=== PATIENT | male | born 2000 | race Caucasian/White ===

== ENCOUNTER 2018-02-06 13:54 | Emergency (ER) | payer BC ==
--- NOTE | 2018-02-06 14:34 | EDPHY ---
H & P Stated Complaint: window fell on left hand last night Time Seen by Provider: 02/06/18 14:05 HPI/ROS: HPI: This is a 17-year-old male who presents with Chief Complaint: window fell on left hand last night Location: Left hand Quality: Injury Duration: Last night Signs and Symptoms: No bleeding, no radiation, no numbness, no weakness, no tingling, no incontinence, + decreased range of motion, + swelling, + pain, no fever Timing: Acute Severity: Moderate Context: Patient is right-hand dominant, presents with accidentally having a metal window in the dormitory slam on his left hand primarily his middle finger yesterday evening around 10:00 p.m. This occurred 14 hr prior to arrival. Patient reports that there is swelling, pain and decreased range of motion. He originally went to urgent care but they sent him to the emergency room for further evaluation. Reports tetanus is NOT current. Patient admits that he was under the influence of alcohol at the time of injury. Denies radiation, weakness, paresthesias. Modifying Factors: None Comment: ROS: A comprehensive 10 system review of systems is otherwise negative aside from elements mentioned in the history of present illness. MEDICAL/SURGICAL/SOCIAL HISTORY: Medical history: Generally healthy. Does not take any regular medications. Surgical history: Denies Social history: Student at [employer]. Nonsmoker. CONSTITUTIONAL: Polite and cooperative, teenage white male, awake and alert, no obvious distress HEENT: Atraumatic and normocephalic. NECK: supple EXTREMITIES: 2/2 pulses, strength 5/5, left middle finger DIP/PIP/MCP flexion/ extension intact with good light touch sensation. no deformities, no clubbing, no cyanosis or edema. NEUROLOGICAL: no focal neuro deficits. GCS 15. Light touch sensation intact. SKIN: Warm and dry, no erythema. no rash. Good capillary refill. Source: Patient Exam Limitations: No limitations - Personal History Current Tetanus/Diphtheria Vaccine: No Current Tetanus Diphtheria and Acellular Pertussis (TDAP): No - Medical/Surgical History Hx Asthma: No Hx Chronic Respiratory Disease: No Hx Diabetes: No Hx Cardiac Disease: No Hx Renal Disease: No Hx Cirrhosis: No Hx Alcoholism: No Hx HIV/AIDS: No Hx Splenectomy or Spleen Trauma: No Other PMH: none - Social History Smoking Status: Never smoked Constitutional: Initial Vital Signs Temperature (C) 36.7 C 02/06/18 13:56 Heart Rate 79 02/06/18 13:56 Respiratory Rate 18 02/06/18 13:56 Blood Pressure 137/87 H 02/06/18 13:56 O2 Sat (%) 96 02/06/18 13:56 O2 Delivery Mode Room Air Allergies/Adverse Reactions: Penicillins Allergy (Verified 02/06/18 13:55) Home Medications: Medication Instructions Recorded Acetaminophen/Codeine 300/30Mg 1 each PO Q6 PRN #10 tab 02/06/18 [Tylenol #3 (*)] Cephalexin [Keflex (*)] 500 mg PO TID #21 cap 02/06/18 Medical Decision Making - Diagnostics Imaging Results: Imaging Impressions Hand X-Ray 02/06/18 14:08 Impression: 1. There is no acute fracture. 2. Query small skin flap versus tiny radiopaque foreign body near the middle finger distal phalanx. Clinical correlation is suggested. Procedures: Procedure: Splint placement. A volar splint was applied by the Emergency Room is technician. After application of the splint I returned and re-examined the patient. The splint was adequately immobilizing the joint and distal to the splint the patient's circulation and sensation was intact. ED Course/Re-evaluation: Right hand x-ray ordered and shows soft tissue swelling but no fracture Local anesthesia provided and copiously irrigated No sutures required for superficial macerated skin. Will place on Keflex for antibiotic prophylaxis and give Tylenol No. 3 due to significant pain. Patient placed in volar wrist splint for immobilization Advised wound check in 3-5 days. No signs of neurovascular compromise/tenting of skin/compartment syndrome/ extremities and joints examined above and below area of concern and are neurovascularly intact. This patient was seen under the supervision of my secondary supervising physician. I evaluated care for this patient independently. Discussed this patient with Dr. Marley. Differential Diagnosis: Differential diagnosis includes but is not limited to crush injury, foreign body , laceration, nerve injury, tendon injury. Departure - Departure Disposition: Home, Routine, Self-Care Clinical Impression: Crushing injury of hand and fingers Qualifiers: Encounter type: initial encounter Laterality: left Qualified Code(s): S67.22XA - Crushing injury of left hand, initial encounter Condition: Good Instructions: Crush Injury (ED), Laceration Without Closure (ED) Additional Instructions: Keep the dressing/splint dry and in place for 3 days. After 3 days you may remove the splint and dressing, wash the site daily with mild soap and water; then pat dry. Keep covered with clean sterile dressing until fully healed. Take Tylenol 650 mg every 4 hours and/or Ibuprofen 600 mg every 8 hours with food as needed for pain. Take Tylenol No. 3 every 6 hr as needed for severe/breakthrough pain. Do not take Tylenol and Tylenol No. 3 at the same time. Apply ice for 30 minutes at a time; 2-3 times per day for the next 1-2 days. Take antibiotic as directed. Do not skip a dose. The x-rays obtained in the emergency department today demonstrate no evidence of an obvious fracture. Sometimes fractures are not obvious on the initial set of x-rays performed in the ED. For this reason, you should have repeat x-rays performed in 7-10 days if you are having any pain exclude the possibility of an occult fracture. Return to the ER immediately if you experience redness, red streaks, have fevers /chills, flu like symptoms, limited range of motion, or any other symptoms that concern you. Wound Care Follow-Up: Wound evaluation in [ 3-5 ] days. There is a charge for this evaluation in the Emergency Department. Referrals: [facility],. [Clinic] - 5-7 days, if not improved Prescriptions: Acetaminophen/Codeine 300/30Mg [Tylenol #3 (*)] 1 each PO Q6 PRN #10 tab PRN Reason: Pain, Severe Cephalexin [Keflex (*)] 500 mg PO TID #21 cap
[2018-02-06] MEDS ORDERED: TDAP ADULT 0.5 ML INJ (BOOSTRIX) IM ONE (14:38)
[2018-02-06 15:10] VITALS: BP 120/80
== END 2018-02-06 15:10 | disposition home or self-care (01) ==
PROC: 2W3FX1Z Immobilization of Left Hand using Splint (ICD-10-PCS; principal; 2018-02-06)
DX: S67.22XA Crushing injury of left hand, initial encounter (principal); Z23 Encounter for immunization; W23.0XXA Caught, crushed, jammed, or pinched between moving objects, initial encounter; Y92.9 Unspecified place or not applicable; Y93.9 Activity, unspecified; Y99.9 Unspecified external cause status